=== PATIENT | female | born 1995 | race Caucasian/White ===

== ENCOUNTER 2017-01-23 16:01 | Emergency (ER) | payer BC, MEDICAID ==
[~2017-01-23] VITALS: Ht 167.6 cm; Wt 97.3 kg
[~2017-01-23 16:01] MED LIST: FOLIC ACID 11 MG/TA1 PO; KEPPRA 500MG500 MG PO; PRENATAL1 TA7 PO; TRILEPTAL600 MG PO
[2017-01-23 17:03] LABS: BASO % 0.4 % (0.0-2.0); EOS # 0.1 (0.0-0.7); EOS % 1.3 % (0-4.0); GRAN % 71.6 % (42.2-75.2); HEMOGLOBIN 12.3 g/dl (12.0-15.0); LYMPH # 1.1 (1.2-3.4); LYMPH % 19.3 % (20.0-51.0); MEAN CELL VOLUME 81 fl (80.0-95.0); MEAN CORPUSCULAR HEMOGLOBIN 28 pg (26.0-32.0); MEAN CORPUSCULAR HGB CONC 34 g/dl (33.0-37.0); MEAN PLATELET VOLUME 10.9 fl (7.4-10.4); MONO # 0.4 (0.1-0.6); MONO % 7.2 % (1.7-9.3); PLATELET COUNT 198 K/mm3 (130-400); RED BLOOD COUNT 4.48 M/mm3 (4.10-5.30); REDCELL DISTRIBUTION WIDTH-CV 12.9 % (11.5-14.5); WHITE BLOOD COUNT 5.6 K/mm3 (4.8-10.8)
[2017-01-23 17:07] LABS: ADJUSTED CALCIUM 9.3 mg/dL (8.4-10.2); ALBUMIN 4.4 gm/dL (3.5-5.0); BILIRUBIN,TOTAL 0.4 mg/dL (0.0-1.0); CALCIUM 9.6 mg/dL (8.4-10.2); CREATININE, serum 0.59 mg/dL (0.52-1.25); MAGNESIUM 1.6 mg/dL (1.6-2.3); PHOSPHOROUS 3.2 mg/dL (2.5-4.5); POTASSIUM 3.8 mmol/L (3.4-5.0); TOTAL PROTEIN 7.5 gm/dL (6.4-8.2)
[2017-01-23 17:20] LABS: HEMATOCRIT 36.4 % (35.0-45.0)
[2017-01-23] MEDS ORDERED: VIMPAT100 MG PO (18:39)
[2017-01-23 18:57] VITALS: BP 135/85
[2017-01-23 19:06] VITALS: TEMP 98.2
[2017-01-23 19:19] VITALS: PULSE 88
== END 2017-01-23 19:20 | disposition home or self-care (01) ==
LOC: COL.ER 16:01
PROVIDERS: Emergency Medicine
DX: R41.82 Altered mental status, unspecified (principal); G40.909 Epilepsy, unspecified, not intractable, without status epilepticus; Z86.61 Personal history of infections of the central nervous system
CPT/HCPCS: A9585; C9254

== ENCOUNTER 2021-09-11 00:40 | Emergency (ER) | payer BC ==
[~2021-09-11] VITALS: Ht 167.6 cm; Wt 102.3 kg
[~2021-09-11 00:40] MED LIST changes: +VIMPAT100 MG PO
[2021-09-11 00:49] VITALS: BP 140/91; TEMP 97.6
[2021-09-11] MEDS ORDERED: PREDNISONE50 MG PO (01:19)
[2021-09-11 01:27] VITALS: PULSE 74
== END 2021-09-11 01:28 | disposition home or self-care (01) ==
LOC: COL.ER 00:40
DX: G50.0 Trigeminal neuralgia (principal); Z98.890 Other specified postprocedural states; Z88.8 Allergy status to other drugs, medicaments and biological substances
CPT/HCPCS: J7512

== ENCOUNTER 2021-10-27 04:46 | Emergency (ER) | payer BC ==
[~2021-10-27] VITALS: Ht 167.6 cm; Wt 106.8 kg
[~2021-10-27 04:46] MED LIST changes: +PREDNISONE50 MG PO
[2021-10-27 05:08] VITALS: TEMP 98.4
[2021-10-27 05:32] LABS: COLLECTION METHOD CLEAN CATCH
[2021-10-27 05:36] LABS: EOS % 1.5 % (0.0-4.0); GRAN # 1.1 K/mm3 (1.4-6.5); GRAN % 55.4 % (42.2-75.2); HEMATOCRIT 36.7 % (37.0-47.0); HEMOGLOBIN 12.9 g/dl (12.5-16.0); LYMPH # 0.6 K/mm3 (1.2-3.4); LYMPH % 28.9 % (20.0-51.0); MEAN CELL VOLUME 77 fl (80.0-100.0); MEAN CORPUSCULAR HEMOGLOBIN 27 pg (27-31); MEAN CORPUSCULAR HGB CONC 35 g/dl (33.0-37.0); MEAN PLATELET VOLUME 9.8 fl (7.4-10.4); MONO # 0.3 K/mm3 (0.1-0.6); MONO % 12.7 % (1.7-9.3); PLATELET COUNT 154 K/mm3 (130-400); RED BLOOD COUNT 4.74 M/mm3 (4.10-5.30); REDCELL DISTRIBUTION WIDTH-CV 12.1 % (11.5-14.5)
[2021-10-27 05:45] LABS: MUCOUS Present (NOT PRESENT); PH 5 (5-8); URINE APPEARANCE Hazy (CLEAR/HAZY); URINE BACTERIA Rare /hpf (NONE SEEN); URINE BILIRUBIN Negative (NEGATIVE); URINE BLOOD Negative (NEGATIVE); URINE COLOR Amber (YELLOW); URINE GLUCOSE Negative (NEGATIVE); URINE KETONE Trace (NEGATIVE); URINE LEUKOCYTE ESTERASE Negative (NEGATIVE); URINE NITRATE Negative (NEGATIVE); URINE PROTEIN(semi-quant) 1+ (NEGATIVE); URINE UROBILINOGEN >=4.0 (NEGATIVE)
[2021-10-27 05:52] LABS: ALANINE AMINOTRANSFERASE 27 U/L (0-55); ALBUMIN 3.7 gm/dL (3.5-5.0); ALKALINE PHOSPHATASE 115 U/L (40-150); ANION GAP 10 mmol/L (7-16); AST,SGOT 29 U/L (5-34); BILIRUBIN,TOTAL 0.7 mg/dL (0.2-1.2); BLOOD UREA NITROGEN 8 mg/dL (7-19); CALCIUM 8.8 mg/dL (8.4-10.2); CARBON DIOXIDE 25 mmol/L (22-29); CHLORIDE 102 mmol/L (98-107); CREATININE, serum 0.78 mg/dL (0.57-1.11); GLUCOSE 102 mg/dL (70-99); POTASSIUM 3.8 mmol/L (3.5-4.5); SODIUM 137 mmol/L (136-145); TOTAL PROTEIN 7.3 gm/dL (6.2-8.1)
[2021-10-27 06:09] LABS: HCG,QUANTITATIVE < 1 mIU/mL
[2021-10-27] MEDS ORDERED: NORCO 325 MG-51 TAB PO (07:38)
[2021-10-27 07:48] VITALS: BP 120/79; PULSE 84
== END 2021-10-27 07:50 | disposition home or self-care (01) ==
LOC: COL.ER 04:46
PROVIDERS: Emergency Medicine
DX: R10.30 Lower abdominal pain, unspecified (principal); M54.50 Low back pain, unspecified; D72.819 Decreased white blood cell count, unspecified; F17.210 Nicotine dependence, cigarettes, uncomplicated; Z20.822 Contact with and (suspected) exposure to COVID-19; Z32.02 Encounter for pregnancy test, result negative
CPT/HCPCS: J7030; Q9967

== ENCOUNTER 2022-01-06 23:12 | Emergency (ER) | payer BC ==
[~2022-01-06] VITALS: Ht 167.6 cm; Wt 104.5 kg
[~2022-01-06 23:12] MED LIST changes: +NORCO 325 MG-51 TAB PO
[2022-01-06 23:18] VITALS: BP 138/89; TEMP 98
[2022-01-06] MEDS ORDERED: NORCO 325 MG-51 TAB PO (23:31)
[2022-01-06] MEDS ORDERED: AMOXICILLIN 8751 TAB PO (23:31)
[2022-01-07 00:07] VITALS: PULSE 70
== END 2022-01-07 00:12 | disposition home or self-care (01) ==
LOC: COL.ER 23:12
DX: K04.7 Periapical abscess without sinus (principal)

== ENCOUNTER 2022-02-04 21:18 | Emergency (ER) | payer SELFPAY ==
[~2022-02-04] VITALS: Ht 167.6 cm; Wt 103.6 kg
[~2022-02-04 21:18] MED LIST changes: +AMOXICILLIN 8751 TAB PO
[2022-02-04 21:19] VITALS: TEMP 98
[2022-02-04 23:59] VITALS: BP 137/83; PULSE 103
== END 2022-02-05 00:33 | disposition home or self-care (01) ==
LOC: COL.ER 21:18
PROVIDERS: Emergency Medicine
DX: S53.124A Posterior dislocation of right ulnohumeral joint, initial encounter (principal); S80.812A Abrasion, left lower leg, initial encounter; V89.2XXA Person injured in unspecified motor-vehicle accident, traffic, initial encounter; Y92.410 Unspecified street and highway as the place of occurrence of the external cause
CPT/HCPCS: J2270; J2704; J7030

== ENCOUNTER 2022-02-09 15:11 | Emergency (ER) | payer OTHER ==
[~2022-02-09] VITALS: Ht 167.6 cm; Wt 102.3 kg
[2022-02-09 17:00] VITALS: BP 135/105; PULSE 88; TEMP 98.4
== END 2022-02-09 17:00 | disposition home or self-care (01) ==
LOC: COL.ER 15:11
DX: S53.104D Unspecified dislocation of right ulnohumeral joint, subsequent encounter (principal); F17.290 Nicotine dependence, other tobacco product, uncomplicated; V89.2XXD Person injured in unspecified motor-vehicle accident, traffic, subsequent encounter

== ENCOUNTER 2022-03-22 10:30 | Outpatient (RCR) | payer OTHER | END 2022-04-04 | disposition home or self-care (01) | LOC: MKS.ESL.PT | DX: S53.104A Unspecified dislocation of right ulnohumeral joint, initial encounter (principal); X58.XXXA Exposure to other specified factors, initial encounter ==

== ENCOUNTER 2024-03-20 10:37 | Inpatient (IN) | payer OTHER ==
[2024-03-20] VITALS (34 sets, daily range): BP systolic 108–152; BP diastolic 63–95; PULSE 71–97; TEMP 97.6–98.5
[~2024-03-20] VITALS: Ht 167.6 cm; Wt 110.0 kg
[~2024-03-20 10:37] MED LIST changes: +CEPHALEXIN500 M1 PO
[2024-03-20] MEDS ORDERED: LR & Oxytocin 500 ML IV SCH (11:15)
[2024-03-20] MEDS ORDERED: LR 1,000 ML IV PRN (11:15)
[2024-03-20] MEDS ORDERED: LR 1,000 ML IV SCH (11:15)
--- NOTE | 2024-03-20 11:40 | NUR ---
1050 PATIENT HERE FROM OFFICE FOR NO MOVEMENT OF FETUS WITH BPP. EFM ON FHT 125 BABY VERY ACTIVE HERE, OCCASIONAL CONTRACTIONS BUT PALPATE MILD.SVE 4/80/-2 NO FLUID OR BLEEDING NOTED. BP/146/93 NO HEADACHE NOTED. FULL ASSESSMENT COMPLETED. DR CHINCHILLA CALLED AND UPDATED. ORDERS TO ADMIT FOR INDUCTION.
[2024-03-20 11:50] LABS: COLLECTION METHOD CLEAN CATCH
--- NOTE | 2024-03-20 11:51 | NUR ---
1140 REPORT GIVEN TO XOCHITL Stacy TO ASSUME CARE AT THIS TIME
[2024-03-20 11:56] LABS: BASO % 0.2 % (0.0-2.0); EOS # 0.1 K/mm3 (0.0-0.7); EOS % 1.3 % (0.0-4.0); GRAN # 6.3 K/mm3 (1.4-6.5); GRAN % 76.2 % (42.2-75.2); HEMOGLOBIN 11.1 g/dl (12.5-16.0); LYMPH # 1.3 K/mm3 (1.2-3.4); LYMPH % 15.3 % (20.0-51.0); MEAN CELL VOLUME 79 fl (80.0-100.0); MEAN CORPUSCULAR HEMOGLOBIN 26 pg (27-31); MEAN CORPUSCULAR HGB CONC 32 g/dl (33.0-37.0); MONO # 0.6 K/mm3 (0.1-0.6); MONO % 6.8 % (1.7-9.3); PLATELET COUNT 176 K/mm3 (130-400); RED BLOOD COUNT 4.35 M/mm3 (4.10-5.30); REDCELL DISTRIBUTION WIDTH-CV 15.4 % (11.5-14.5)
[2024-03-20 12:00] LABS: HEMATOCRIT 34.4 % (37.0-47.0); URINE APPEARANCE CLOUDY (CLEAR/HAZY); URINE BLOOD NEGATIVE (NEGATIVE); URINE COLOR YELLOW (YELLOW); URINE GLUCOSE NEGATIVE (NEGATIVE); URINE KETONE NEGATIVE (NEGATIVE); URINE NITRATE NEGATIVE (NEGATIVE); URINE PROTEIN(semi-quant) TRACE (NEGATIVE)
[2024-03-20 12:14] LABS: ALBUMIN 2.9 g/dL (3.5-5.0); BILIRUBIN,TOTAL 0.3 mg/dL (0.2-1.2); CALCIUM 9.5 mg/dL (8.4-10.2); CREATININE, serum 0.66 mg/dL (0.57-1.11); POTASSIUM 4.1 mEq/L (3.5-4.5)
--- NOTE | 2024-03-20 12:28 | NUR ---
DR. CHINCHILLA AT BEDSIDE, DISCUSSES AROM WITH PT, PT AGREES. AROM PERFORMED AT [address] CHINCHILLA. SVE /-2. PT TOLERATES WELL
[2024-03-20] MEDS ORDERED: ROPivacaine PF 0.2% 200 ML IV ONE (13:18)
--- NOTE | 2024-03-20 13:28 | NUR ---
PT REQUESTS EPIDURAL. REBECCA CRAWFORD NOTIFIED. LR BOLUS RUNNING, PULSE OX APPLIED. PT POSITIONED FOR EPIDURAL SITTING ON EDGE OF BED. DIFFICULT TO MAINTAIN HEART TONES WHILE PT SITTING UP FOR EPIDURAL. REBECCA CRAWFORD ADMINISTERS SINGLE SHOT AT 1328. PT TOLERATES PROCEDURE WELL. EPIDURAL HOOKED UP TO CONTINUOUS PUMP PER REBECCA CRAWFORD.
[2024-03-20] MEDS ORDERED: ePHEDrine 50 MG/10 ML VIAL IV PRN (14:00)
[2024-03-20] MEDS ORDERED: diphenhydrAMINE 50 MG/ML 1 ML VIAL IV PRN (14:00)
[2024-03-20] MEDS ORDERED: diphenhydrAMINE 25 MG CAP PO PRN (14:00)
[2024-03-20] MEDS ORDERED: Ondansetron 4 MG/2 ML VIAL IV PRN (14:00)
[2024-03-20] MEDS ORDERED: Naloxone 0.4 MG/ML VIAL IV PRN ×2 (14:00→17:45)
--- NOTE | 2024-03-20 17:08 | NUR ---
1638: PT COMPLETE, DR. CHINCHILLA NOTIFIED, VAT PACKER AND NURSERY RN NOTIFIED 1655: DR. CHINCHILLA AT BEDSIDE, PT UP IN STIRRUPS, EDUCATION GIVEN REGARDING PUSHING. PUSHING STARTED AT 165. 1708: OF VIABLE MALE BY DR. CHINCHILLA. CORD CLAMPED X2 AND CUT BY FOB. NURSERY RN TAKES OVER CARE ON INFANT. PITOCIN SHUT OFF. 171: SVE OF INTACT PLACENTA BY DR. CHINCHILLA. PITOCIN BOLUS STARTED. DR. CHINCHILLA REPAIRS A SUPERFICIAL PERINEAL LACERATION. BED PUT BACK TOGETHER, PT TAKEN OUT OF STIRRUPS, ICE PACK APPLIED. PT IN STABLE CONDITION WITH FUNDUS AT UMBILICUS AND MINIMAL BLEEDING. WILL CONTINUE TO MONITOR
[2024-03-20] MEDS ORDERED: Magnes Hydrox (MOM) 80 MG/ML 30 ML CUP PO PRN (17:45)
[2024-03-20] MEDS ORDERED: Loratadine 10 MG TAB PO PRN (17:45)
[2024-03-20] MEDS ORDERED: Ibuprofen 600 MG TAB PO SCH (17:45)
[2024-03-20] MEDS ORDERED: Mag/Al Hydrox/Simeth Susp 30 ML CUP PO PRN (17:45)
[2024-03-20] MEDS ORDERED: Phenylephrine/Mineral Oil/Petrolatum 57 GM TUBE RC PRN (17:45)
[2024-03-20] MEDS ORDERED: Acetaminophen 500 MG TAB PO SCH (17:45)
[2024-03-20] MEDS ORDERED: Measles/Mumps/Rubella Virus Vaccine Live w Diluent 0.5 ML VIAL SQ SCH (17:45)
[2024-03-20] MEDS ORDERED: Tdap Vaccine 0.5 ML SYRINGE IM SCH (17:45)
[2024-03-20] MEDS ORDERED: Witch Hazel 50% Pads Bulk TUB TP PRN (17:45)
[2024-03-20] MEDS ORDERED: oxyCODONE 5 MG TAB PO PRN (17:45)
[2024-03-20] MEDS ORDERED: OXcarbazepine 300 MG TAB PO SCH (21:00)
[2024-03-20] MEDS ORDERED: traZODone 50 MG TAB PO PRN (21:00)
--- NOTE | 2024-03-20 21:00 | NUR ---
2099- PATIENT ABLE TO LIFT BILATERAL LOWER EXTREMITIES. PATIENT SITTING ON EDGE OF BED. DENIES FEELING LIGHT HEADED. PATIENT TRANSFERRED TO RESTROOM VIA [facility] FOLLOWING DELIVERY. PERICARE PROVIDED. [facility] GOWN, PAD AND UNDERWEAR ON. 2109- PATIENT TRANSFERRED TO ROOM VIA [facility]. PATIENT EDUCATED ON CALLING STAFF BEFORE GETTING OUT OF BED AND PLAN OF CARE. QUESTIONS INVITED AND ANSWERED.
[2024-03-21 02:30] VITALS: BP 160/87; PULSE 80; TEMP 98
[2024-03-21 03:35] VITALS: BP 128/85; PULSE 74
[2024-03-21] MEDS ORDERED: Sennosides/Docusate 8.6-50 MG TAB PO SCH (08:00)
[2024-03-21 08:10] VITALS: BP 121/81; PULSE 80; TEMP 97.8
[2024-03-21] MEDS ORDERED: IBU600 MG PO (08:27)
[2024-03-21] MEDS ORDERED: Influenza Virus Vaccine, Trivalent '24-25 0.5 ML SYRINGE IM SCH ×2 (09:00)
[2024-03-21] MEDS ORDERED: Rho(D) Imm Globulin 1,500 UNITS (300 MCG)/2 ML SYRINGE IV\\IM SCH (10:00)
--- NOTE | 2024-03-21 13:30 | NUR ---
Initial visit; Mom thanked Rolling Attendant for offering congratulations and God's blessings for the of her son. Rolling Attendant thanked mom [facility] and wished her well.
[2024-03-21 17:30] VITALS: BP 118/79; PULSE 82; TEMP 98
== END 2024-03-21 18:50 | disposition home or self-care (01) | DRG 806 ==
LOC: LDRO 10:37 → OB 11:12 → LDR 11:12 → EDSTATUS 11:16 → OB 21:55
PROVIDERS: ADMIT Obstetrics & Gynecology
PROC: 10E0XZZ Delivery of Products of Conception, External Approach (ICD-10-PCS; principal; 2024-03-20)
PROC: 0HQ9XZZ Repair Perineum Skin, External Approach (ICD-10-PCS; 2024-03-20)
DX: O43.123 Velamentous insertion of umbilical cord, third trimester (principal); O99.354 Diseases of the nervous system complicating childbirth; Z37.0 Single live birth; O99.02 Anemia complicating childbirth; G40.909 Epilepsy, unspecified, not intractable, without status epilepticus; Z3A.39 39 weeks gestation of pregnancy; O99.214 Obesity complicating childbirth
CPT/HCPCS: J2590; J2791; J2795; J7120